=== PATIENT | female | born 1985 | race Caucasian/White ===

== ENCOUNTER 2018-10-10 15:48 | Emergency (ER) | payer BC ==
[2018-10-10] MEDS ORDERED: Sodium Chloride 0.9% 10 ML Syringe FLUSH PRN (16:17)
[2018-10-10] MEDS ORDERED: Sodium Chloride 0.9% 1,000 ML IV SCH (16:30)
[2018-10-10 17:46] LABS: HEMOGLOBIN A1C 10.8 % (4.50-6.20)
--- NOTE | 2018-10-10 18:55 | EDM.PDOC ---
ED HPI GENERAL MEDICAL PROBLEM - General Chief Complaint: Diabetic Complaint Stated Complaint: HIGH BLOOD SUGAR Time Seen by Provider: 10/10/18 16:04 Source of Information: Reports: Patient History Limitations: Reports: No Limitations - History of Present Illness INITIAL COMMENTS - FREE TEXT/NARRATIVE: The patient was sent over from the walk in clinic for an elevated blood sugar. Her blood sugar was 638 and she has no history of diabetes. She came to be seen for RUQ abdominal pain that is worse when she eats. This has been going on for a few days. She has nausea and vomiting. She has no fever, chills, cough, congestion or runny nose. She has no pain with urination. She still has her gallbladder. She has not been urinating more or drinking more water. She said over the past few days she has been consuming more sugar and bad food. Onset: Gradual Duration: Day(s): Location: Reports: Abdomen (RUQ) Quality: Reports: Sharp Severity: Moderate Improves with: Reports: None Worsens with: Reports: None Associated Symptoms: Reports: Nausea/Vomiting. Denies: Chest Pain, Cough, Fever /Chills, Headaches, Shortness of Breath - Related Data Allergies Allergy/AdvReac Type Severity Reaction Status Date / Time codeine Allergy Vomiting Verified 10/10/18 16:00 Home Meds: Home Meds . [No Known Home Meds] 10/10/18 [History] Past Medical History - Past Health History Medical/Surgical History: Denies Medical/Surgical History Social & Family History - Tobacco Use Smoking Status *Q: Current Every Day Smoker Years of Tobacco use: 8 Packs/Tins Daily: 0.5 - Caffeine Use Caffeine Use: Reports: Coffee, Energy Drinks, Soda - Recreational Drug Use Recreational Drug Use: No ED ROS GENERAL - Review of Systems Review Of Systems: See Below Constitutional: Reports: No Symptoms HEENT: Reports: No Symptoms Respiratory: Reports: No Symptoms Cardiovascular: Reports: No Symptoms Endocrine: Reports: No Symptoms GI/Abdominal: Reports: Abdominal Pain, Nausea, Vomiting : Reports: No Symptoms ED EXAM GENERAL NO PERIP PULSE - Physical Exam Exam: See Below Exam Limited By: No Limitations General Appearance: Alert, No Apparent Distress Ears: Normal External Exam Nose: Normal Inspection Head: Atraumatic, Normocephalic Neck: Normal Inspection Respiratory/Chest: No Respiratory Distress, Lungs Clear, Normal Breath Sounds Cardiovascular: Regular Rate, Rhythm, No Edema, No Murmur GI/Abdominal: Soft, No Organomegaly, No Mass, Tender (Moderate tenderness to the RUQ) Extremities: Normal Inspection Neurological: Alert, Oriented, No Motor/Sensory Deficits Course - Vital Signs Last Recorded V/S: Last Vital Signs Temp 96.5 F 10/10/18 15:57 Pulse 80 10/10/18 15:57 Resp 16 10/10/18 15:57 BP 132/82 10/10/18 15:57 Pulse Ox 98 10/10/18 15:57 - Orders/Labs/Meds Orders: Active Orders 24 hr Category Date Time Status Cardiac Monitoring [RC] . DIRECTED Care 10/10/18 16:17 Active Peripheral IV Care [RC] . DIRECTED Care 10/10/18 16:17 Active Abdomen Ltd [US] Stat Exams 10/10/18 16:34 Taken Sodium Chloride 0.9% [Normal Saline] 1,000 ml Med 10/10/18 16:30 Active IV .BOLUS Sodium Chloride 0.9% [Saline Flush] Med 10/10/18 16:17 Active 10 ml FLUSH ASDIRECTED PRN Peripheral IV Insertion Adult [OM.PC] Stat Oth 10/10/18 16:17 Ordered Medication Orders Sodium Chloride (Normal Saline) 1,000 mls @ 1,000 mls/hr IV .BOLUS EMERALD Last Admin: 10/10/18 16:32 Dose: 1,000 mls/hr Sodium Chloride (Saline Flush) 10 ml FLUSH ASDIRECTED PRN PRN Reason: Keep Vein Open Last Admin: 10/10/18 16:32 Dose: 10 ml Labs: Laboratory Tests 10/10/18 10/10/18 10/10/18 Range/Units 16:30 16:30 16:30 VBG pH (7.30-7.40) Sodium 134 L (136-145) mEq/L Potassium 4.4 (3.5-5.1) mEq/L Chloride 101 (98-107) mEq/L Carbon Dioxide 23 (21-32) mEq/L Anion Gap 14.4 (5-15) BUN 13 (7-18) mg/dL Creatinine 0.7 (0.55-1.02) mg/dL Est Cr Clr Drug Dosing 102.86 mL/min Estimated GFR (MDRD) > 60 (>60) mL/min BUN/Creatinine Ratio 18.6 H (14-18) Glucose 440 H (74-106) mg/dL Hemoglobin A1c 10.80 H (4.50-6.20) % Serum Osmolality 300 (280-300) mosm/kg Calcium 9.6 (8.5-10.1) mg/dL Total Bilirubin 0.2 (0.2-1.0) mg/dL AST 17 (15-37) U/L ALT 31 (14-59) U/L Alkaline Phosphatase 88 (46-116) U/L Total Protein 6.9 (6.4-8.2) g/dl Albumin 3.4 (3.4-5.0) g/dl Globulin 3.5 gm/dL Albumin/Globulin Ratio 1.0 (1-2) Ketones 0.07 (0.0-0.3) mM 10/10/18 Range/Units 18:25 VBG pH 7.43 H (7.30-7.40) Sodium (136-145) mEq/L Potassium (3.5-5.1) mEq/L Chloride (98-107) mEq/L Carbon Dioxide (21-32) mEq/L Anion Gap (5-15) BUN (7-18) mg/dL Creatinine (0.55-1.02) mg/dL Est Cr Clr Drug Dosing mL/min Estimated GFR (MDRD) (>60) mL/min BUN/Creatinine Ratio (14-18) Glucose (74-106) mg/dL Hemoglobin A1c (4.50-6.20) % Serum Osmolality (280-300) mosm/kg Calcium (8.5-10.1) mg/dL Total Bilirubin (0.2-1.0) mg/dL AST (15-37) U/L ALT (14-59) U/L Alkaline Phosphatase (46-116) U/L Total Protein (6.4-8.2) g/dl Albumin (3.4-5.0) g/dl Globulin gm/dL Albumin/Globulin Ratio (1-2) Ketones (0.0-0.3) mM Meds: Medications Generic Name Dose Route Start Last Admin Trade Name Freq PRN Reason Stop Dose Admin Sodium Chloride 1,000 mls @ 1,000 mls/hr 10/10/18 16:30 10/10/18 16:32 Normal Saline IV 1,000 mls/hr .BOLUS EMERALD Administration Sodium Chloride 10 ml 10/10/18 16:17 10/10/18 16:32 Saline Flush FLUSH 10 ml ASDIRECTED PRN Administration Keep Vein Open - Re-Assessments/Exams Free Text/Narrative Re-Assessment/Exam: 10/10/18 19:03 I ordered an IV NS 1L bolus, labs, and an US of her RUQ. The US shows nothing acute. Her CBC looks good. Her pH was slightly elevated at 7.43. Her Na is a little low at 134. Her glucose is 440. Her A1C is 10.8. Her ketones are normal. She has new onset Type II diabetes. I will get her started on some metformin. Departure - Departure Time of Disposition: 19:10 Disposition: Home, Self-Care 01 Condition: Good Clinical Impression: Hyperglycemia Abdominal pain Qualifiers: Abdominal location: right upper quadrant Qualified Code(s): R10.11 - Right upper quadrant pain Type II diabetes mellitus Qualifiers: Diabetes mellitus long term care pharmacist insulin use: without half-way use Diabetes mellitus complication status: with other specified complication Qualified Code(s ): E11.69 - Type 2 diabetes mellitus with other specified complication - Discharge Information *PRESCRIPTION DRUG MONITORING PROGRAM REVIEWED*: No *COPY OF PRESCRIPTION DRUG MONITORING REPORT IN PATIENT AMARI: No Referrals: PCP,None [Primary Care Provider] - Debby Wray PA-C [Physician Filter Tip Catcher] - 1 Week Forms: ED Department Discharge Additional Instructions: Drink plenty of fluids. Take the metformin daily. Follow up with Debby Wray in 1 week. Check your blood sugars daily. Please return if you are worse. - My Orders Last 24 Hours: My Active Orders 10/10/18 16:17 Cardiac Monitoring [RC] . DIRECTED Peripheral IV Care [RC] . DIRECTED Sodium Chloride 0.9% [Saline Flush] 10 ml FLUSH ASDIRECTED PRN Peripheral IV Insertion Adult [OM.PC] Stat 10/10/18 16:30 Sodium Chloride 0.9% [Normal Saline] 1,000 ml IV .BOLUS 10/10/18 16:34 Abdomen Ltd [US] Stat - Assessment/Plan Last 24 Hours: My Active Orders 10/10/18 16:17 Cardiac Monitoring [RC] . DIRECTED Peripheral IV Care [RC] . DIRECTED Sodium Chloride 0.9% [Saline Flush] 10 ml FLUSH ASDIRECTED PRN Peripheral IV Insertion Adult [OM.PC] Stat 10/10/18 16:30 Sodium Chloride 0.9% [Normal Saline] 1,000 ml IV .BOLUS 10/10/18 16:34 Abdomen Ltd [US] Stat
--- NOTE | 2018-10-13 08:08 | US ---
Limited abdominal ultrasound: Multiple real-time images of the upper right abdomen were obtained. Comparison: No prior abdominal imaging. Liver contains no focal abnormality. Gallbladder shows no shadowing gallstones. No gallbladder wall thickening or biliary duct dilatation is seen. Right kidney shows no hydronephrosis or mass. Pancreas is incompletely seen. Visualized portions of the pancreas are within normal limits. Inferior vena cava is patent. Portal vein shows normal hepatopedal flow. Impression: 1. Nothing acute is appreciated on right upper quadrant abdominal ultrasound. Diagnostic code #1 I agree with preliminary report from [facility], finalized on 10/10/18, 6:55 PM Central Time
== END 2018-10-10 19:38 | disposition home or self-care (01) ==
LOC: JD.ED 15:48
DX: E11.65 Type 2 diabetes mellitus with hyperglycemia (principal); F17.210 Nicotine dependence, cigarettes, uncomplicated; Z88.5 Allergy status to narcotic agent
CPT/HCPCS: 36415; 76705; 80053; 82009; 82800; 83036; 83930; 96360; 99284; J7040

== ENCOUNTER 2019-04-12 14:01 | Emergency (ER) | payer BC ==
--- NOTE | 2019-04-12 14:47 | EDM.PDOC ---
ED HPI GENERAL MEDICAL PROBLEM - General Chief Complaint: Upper Extremity Injury/Pain Stated Complaint: RT HAND/WRIST INJURY Time Seen by Provider: 04/12/19 14:42 Source of Information: Reports: Patient History Limitations: Reports: No Limitations - History of Present Illness INITIAL COMMENTS - FREE TEXT/NARRATIVE: She's unfortunate 33-year-old female who presents today with complaint of right hand pain. Patient reports she was in her normal state of health approximately 20 minutes prior to arrival when she was walking her dog slipped on ice and fell 4 put out on her outstretched hand and has had pain to her right hand over the thenar eminence ever since. Pain is worse with palpation or range of motion present at rest does not alleviate. Distal neurovascular is intact Right Wrist Pain Score (Numeric/FACES): 6 - Related Data Allergies Allergy/AdvReac Type Severity Reaction Status Date / Time codeine Allergy Vomiting Verified 04/12/19 14:31 Home Meds: Home Meds Lisinopril 5 mg PO DAILY 04/12/19 [History] metFORMIN [Glucophage XR] 1,000 mg PO BID 04/12/19 [History] Past Medical History - Past Health History Medical/Surgical History: Denies Medical/Surgical History Cardiovascular History: Reports: Hypertension Endocrine/Metabolic History: Reports: Diabetes, Type II Social & Family History - Tobacco Use Smoking Status *Q: Former Smoker Used Tobacco, but Quit: Yes Month/Year Tobacco Last Used: 02/14 - Caffeine Use Caffeine Use: Reports: Coffee - Recreational Drug Use Recreational Drug Use: No Review of Systems - Review of Systems Review Of Systems: See Below Musculoskeletal: Reports: Hand Pain Psychiatric: Reports: Other ED EXAM, GENERAL - Physical Exam Exam: See Below Exam Limited By: No Limitations General Appearance: Alert, WD/WN, Mild Distress Respiratory/Chest: No Respiratory Distress, Lungs Clear, Normal Breath Sounds, No Accessory Muscle Use, Chest Non-Tender Cardiovascular: Normal Peripheral Pulses, Regular Rate, Rhythm, No Edema, No Gallop, No JVD, No Murmur, No Rub GI/Abdominal: Normal Bowel Sounds, Soft, Non-Tender, No Organomegaly, No Distention, No Abnormal Bruit, No Mass Extremities: Other (All tenderness to the right thenar eminence tender to palpation no ecchymosis pain is worse with range of motion or palpation present depressed does not alleviate) Neurological: Alert, Oriented Course - Vital Signs Last Recorded V/S: Last Vital Signs Temp 97.1 F 04/12/19 14:28 Pulse 92 04/12/19 14:28 Resp 16 04/12/19 14:28 BP 118/78 04/12/19 14:28 Pulse Ox 99 04/12/19 14:28 - Orders/Labs/Meds Orders: Active Orders 24 hr Category Date Time Status Hand Comp Min 3V Rt [CR] Stat Exams 04/12/19 14:45 Taken - Re-Assessments/Exams Free Text/Narrative Re-Assessment/Exam: 04/12/19 15:17 Right hand interpreted by me NAD Departure - Departure Time of Disposition: 15:18 Disposition: Home, Self-Care 01 Condition: Good Clinical Impression: Sprain of right thumb Qualifiers: Encounter type: initial encounter Sprain of finger site: other site Qualified Code(s): S63.681A - Other sprain of right thumb, initial encounter - Discharge Information Referrals: Debby Wray PA-C [Primary Care Provider] - Forms: ED Department Discharge Additional Instructions: Home, rest, ice, elevate, Tylenol as needed for pain, return as needed for worsening condition Sepsis Event Note - Evaluation Sepsis Screening Result: No Definite Risk - Focused Exam Vital Signs: Vital Signs Temp Pulse Resp BP Pulse Ox 04/12/19 14:28 97.1 F 92 16 118/78 99 Date Exam was Performed: 04/12/19 Time Exam was Performed: 15:17 - My Orders Last 24 Hours: My Active Orders 04/12/19 14:45 Hand Comp Min 3V Rt [CR] Stat - Assessment/Plan Last 24 Hours: My Active Orders 04/12/19 14:45 Hand Comp Min 3V Rt [CR] Stat
--- NOTE | 2019-04-13 10:47 | CR ---
Right hand: Three views of the right hand were obtained. Comparison: No prior right hand exam. Joint spaces are preserved. No fracture, dislocation or other bony abnormality is seen. Impression: 1. No abnormality is identified on right hand exam. Diagnostic code #1 This report was dictated in [place] Standard Time
== END 2019-04-12 15:35 | disposition home or self-care (01) ==
LOC: JD.ED 14:01
DX: S63.681A Other sprain of right thumb, initial encounter (principal); I10 Essential (primary) hypertension; E11.9 Type 2 diabetes mellitus without complications; Z88.5 Allergy status to narcotic agent; Z79.899 Other long term (current) drug therapy; Z79.84 Long term (current) use of oral hypoglycemic drugs; Z87.891 Personal history of nicotine dependence; W00.0XXA Fall on same level due to ice and snow, initial encounter; Y93.K1 Activity, walking an animal
CPT/HCPCS: 73130-26-RT; 73130-RT; 99282; 99283-25

== ENCOUNTER → 2022-10-17 | Day surgery (SDC) | payer BC ==
[~2022-10-17] MED LIST: Bupivacaine 0.25% 10 ML SDV ONE; EPINEPHrine 1 MG/ML 30 ML MDV IRR SCH; HYDROmorphone 0.5 MG/0.5 ML Syringe IVPUSH PRN; Ketorolac 30 MG/ML SDV ONE; Lactated Ringers 1,000 ML IV SCH; Lidocaine 1% 2 ML ONE; Midazolam 1 MG/ML 2 ML SDV ONE; Ondansetron 4 MG/2 ML SDV IVPUSH PRN; Ondansetron 4 MG/2 ML SDV ONE; Propofol 200 MG/20 ML SDV ONE; Sodium Chloride 0.9% 10 ML Syringe FLUSH PRN; Sodium Chloride 0.9% 10 ML Syringe FLUSH SCH; ceFAZolin 2 GM Vial ONE; fentaNYL 100 MCG/2 ML SDV IVPUSH PRN; fentaNYL 100 MCG/2 ML SDV ONE; traMADol 50 MG Tab PO ONE
== END | disposition home or self-care (01) ==
LOC: JD.SDS 07:04
PROVIDERS: ATTEND Orthopaedic Surgery
DX: S83.281A Other tear of lateral meniscus, current injury, right knee, initial encounter (principal); M94.261 Chondromalacia, right knee; G89.29 Other chronic pain; B35.3 Tinea pedis; E78.5 Hyperlipidemia, unspecified; E11.3299 Type 2 diabetes mellitus with mild nonproliferative diabetic retinopathy without macular edema, unspecified eye; F17.210 Nicotine dependence, cigarettes, uncomplicated; Z88.2 Allergy status to sulfonamides; Z88.5 Allergy status to narcotic agent; Z79.84 Long term (current) use of oral hypoglycemic drugs; Z79.899 Other long term (current) drug therapy; Z79.85 Long-term (current) use of injectable non-insulin antidiabetic drugs
CPT/HCPCS: 29881; 87641; A9270; J0171; J0690; J1885; J2250; J2405; J2704; J3010; J3490; J7120; 01400

== ENCOUNTER 2024-04-30 05:17 | Inpatient (IN) | payer BC ==
[~2024-04-30 05:17] MED LIST changes: -Bupivacaine 0.25% 10 ML SDV ONE; -EPINEPHrine 1 MG/ML 30 ML MDV IRR SCH; -HYDROmorphone 0.5 MG/0.5 ML Syringe IVPUSH PRN; -Ketorolac 30 MG/ML SDV ONE; -Lidocaine 1% 2 ML ONE; -Midazolam 1 MG/ML 2 ML SDV ONE; -Ondansetron 4 MG/2 ML SDV IVPUSH PRN; -Ondansetron 4 MG/2 ML SDV ONE; +Oxytocin/0.9 % Sodium Chloride 30 UNIT/500 ML BAG IV SCH; -Propofol 200 MG/20 ML SDV ONE; -Sodium Chloride 0.9% 10 ML Syringe FLUSH SCH; -ceFAZolin 2 GM Vial ONE; -fentaNYL 100 MCG/2 ML SDV IVPUSH PRN; -fentaNYL 100 MCG/2 ML SDV ONE; -traMADol 50 MG Tab PO ONE
[2024-04-30 05:45] LABS: BASOPHILS PERCENT AUTO 0.2 % (0.0-1.0); EOSINOPHILS ABSOLUTE AUTO 0.1 K/mm3 (0.0-0.4); EOSINOPHILS PERCENT AUTO 0.8 % (0.0-6.0); HEMATOCRIT 32.3 % (37.0-47.0); HEMOGLOBIN 11.1 gm/dl (12.0-16.0); IMMATURE GRAN ABSOLUTE AUTO 0.06 K/mm3 (0.00-0.05); IMMATURE GRAN PERCENT AUTO 0.7 % (0.0-0.4); LYMPHOCYTES ABSOLUTE AUTO 2.2 K/mm3 (1.0-4.8); LYMPHOCYTES PERCENT AUTO 24.8 % (24.0-44.0); MEAN CORPUSCULAR HEMOGLOBIN 29.7 pg (28.0-32.0); MEAN CORPUSCULAR HGB CONC 34.4 g/dl (32.0-36.0); MEAN CORPUSCULAR VOLUME 86.4 fl (83.0-99.0); MEAN PLATELET VOLUME 9.1 fl (9.4-12.3); MONOCYTES ABSOLUTE AUTO 0.8 K/mm3 (0.0-0.8); NEUTROPHILS ABSOLUTE AUTO 5.7 K/mm3 (1.8-7.7); NEUTROPHILS PERCENT AUTO 64.5 % (41.0-71.0); PLATELET COUNT,PLT 286 K/mm3 (150-400); RED BLOOD CELL COUNT 3.74 M/mm3 (4.10-5.30)
[2024-04-30] MEDS ORDERED: Oxytocin/0.9 % Sodium Chloride 30 UNIT/500 ML BAG IV SCH (05:45)
[2024-04-30 06:17] LABS: A/G RATIO 0.7 (1-2); ALBUMIN 2.5 g/dl (3.4-5.0); BILIRUBIN TOTAL 0.3 mg/dL (0.2-1.0); CALCIUM 8.7 mg/dL (8.5-10.1); CREATININE 0.6 mg/dL (0.55-1.02); EST CRCL DRUG DOSING (CG) 113.27 mL/min; PROTEIN TOTAL,TP 6.2 g/dl (6.4-8.2)
[2024-04-30] MEDS ORDERED: diphenhydrAMINE 50 MG/ML SDV IVPUSH PRN ×2 (06:36→10:35)
[2024-04-30] MEDS ORDERED: Sodium Chloride 0.9% 10 ML Syringe FLUSH PRN (06:36)
[2024-04-30] MEDS ORDERED: Meperidine 50 MG/ML Vial IVPUSH PRN (06:36)
[2024-04-30] MEDS ORDERED: Ondansetron 4 MG/2 ML SDV IVPUSH PRN (06:36)
[2024-04-30] MEDS ORDERED: fentaNYL 100 MCG/2 ML SDV IVPUSH PRN (06:36)
[2024-04-30] MEDS ORDERED: Lactated Ringers 1,000 ML IV SCH (06:45)
[2024-04-30] MEDS: Metoclopramide 10 MG/2 ML SDV IVPUSH ONE (07:32)
[2024-04-30] MEDS: Lactated Ringers 1,000 ML IV SCH (07:33)
[2024-04-30] MEDS: Citric Acid/Sodium Citrate Solution 30 ML Cup PO ONE ×2 (07:33→09:46)
[2024-04-30] MEDS ORDERED: ceFAZolin 2 GM Vial ONE (08:00)
[2024-04-30] MEDS ORDERED: Ketorolac 30 MG/ML SDV ONE (08:00)
[2024-04-30] MEDS ORDERED: Morphine PF 10 MG/10 ML SDV ONE (08:00)
[2024-04-30] MEDS ORDERED: ePHEDrine 50 MG/ML SDV ONE ×2 (08:00)
[2024-04-30 08:34] LABS: PCO2 UMBILICAL ARTERIAL 76.3 (42-58); PCO2 UMBILICAL VENOUS 48.2 (32.8-38.6); PH,UMBILICAL ARTERIAL 7.11 (7.22-7.32); PH,UMBILICAL VENOUS 7.26 (7.28-7.40)
[2024-04-30 08:35] LABS: BICARBONATE,VENOUS UMBILICAL 21.1 (19-24)
[2024-04-30] MEDS ORDERED: Non-Formulary Medication 1 Each (Metformin 500 MG Tab.Er) PO SCH (09:00)
[2024-04-30] MEDS ORDERED: Sodium Chloride 0.9% 10 ML Syringe FLUSH SCH (09:00)
[2024-04-30 09:45] LABS: HEMATOCRIT 30.1 % (37.0-47.0); MEAN CORPUSCULAR HEMOGLOBIN 29.4 pg (28.0-32.0); MEAN CORPUSCULAR HGB CONC 33.2 g/dl (32.0-36.0); MEAN CORPUSCULAR VOLUME 88.5 fl (83.0-99.0); MEAN PLATELET VOLUME 9.2 fl (9.4-12.3); PLATELET COUNT,PLT 273 K/mm3 (150-400); WHITE BLOOD CELL COUNT,WBC 10.16 K/mm3 (3.9-11.3)
[2024-04-30] MEDS: Metoclopramide 10 MG/2 ML SDV IM ONE (09:46)
[2024-04-30] MEDS: ceFAZolin 1 GM Vial IVPUSH ONE (09:46)
[2024-04-30] MEDS: Sodium Chloride 0.9% 10 ML Syringe FLUSH SCH (09:47)
[2024-04-30 10:03] LABS: INR 0.95; PROTHROMBIN TIME 10.1 SECONDS (9.7-12.0)
[2024-04-30 10:05] LABS: PTT,PARTIAL THROMBOPLSTIN TIME 25.7 SECONDS (21.7-31.4)
[2024-04-30] MEDS ORDERED: Naloxone 0.4 MG/ML SDV IVPUSH PRN (10:35)
[2024-04-30] MEDS ORDERED: Docusate Sodium 100 MG Cap PO PRN (10:35)
[2024-04-30] MEDS ORDERED: oxyCODONE 5 MG Tab PO PRN (10:35)
[2024-04-30] MEDS ORDERED: Ondansetron 4 MG/2 ML SDV IV PRN (10:35)
[2024-04-30] MEDS ORDERED: ePHEDrine 50 MG/ML SDV IVPUSH PRN (10:35)
[2024-04-30] MEDS: Dextrose 5%-Lactated Ringers 1,000 ML IV SCH (12:02)
[2024-04-30] MEDS: Sodium Chloride 0.9% 1,000 ML IV ONE (12:30)
[2024-04-30] MEDS: Ketorolac 30 MG/ML SDV IVPUSH SCH (14:13)
[2024-04-30] MEDS: Sodium Chloride 0.9% 500 ML IV SCH (17:05)
[2024-05-01] MEDS: Sodium Chloride 0.9% 500 ML IV ONE (01:22)
[2024-05-01 05:33] LABS: HEMATOCRIT 25.9 % (37.0-47.0); HEMOGLOBIN 8.7 gm/dl (12.0-16.0); MEAN CORPUSCULAR HEMOGLOBIN 29.1 pg (28.0-32.0); MEAN CORPUSCULAR HGB CONC 33.6 g/dl (32.0-36.0); MEAN CORPUSCULAR VOLUME 86.6 fl (83.0-99.0); PLATELET COUNT,PLT 254 K/mm3 (150-400); RED BLOOD CELL COUNT 2.99 M/mm3 (4.10-5.30); WHITE BLOOD CELL COUNT,WBC 11.14 K/mm3 (3.9-11.3)
[2024-05-01] MEDS: Ibuprofen 600 MG Tab PO SCH (09:13)
[2024-05-01] MEDS: Acetaminophen 325 MG Tab PO PRN (20:11)
[2024-05-02 05:44] LABS: HEMATOCRIT 25.3 % (37.0-47.0); HEMOGLOBIN 8.5 gm/dl (12.0-16.0); MEAN CORPUSCULAR HEMOGLOBIN 29.6 pg (28.0-32.0); MEAN CORPUSCULAR HGB CONC 33.6 g/dl (32.0-36.0); MEAN CORPUSCULAR VOLUME 88.2 fl (83.0-99.0); MEAN PLATELET VOLUME 9.1 fl (9.4-12.3); PLATELET COUNT,PLT 270 K/mm3 (150-400); RED BLOOD CELL COUNT 2.87 M/mm3 (4.10-5.30); WHITE BLOOD CELL COUNT,WBC 8.61 K/mm3 (3.9-11.3)
== END 2024-05-02 10:35 | disposition home or self-care (01) | DRG 540 ==
LOC: JD.OB 05:17
PROVIDERS: ADMIT Obstetrics & Gynecology; ATTEND Obstetrics & Gynecology
PROC: 10D00Z1 Extraction of Products of Conception, Low, Open Approach (ICD-10-PCS; principal; 2024-04-30 07:30)
DX: O24.32 Unspecified pre-existing diabetes mellitus in childbirth (principal); D62 Acute posthemorrhagic anemia; O99.214 Obesity complicating childbirth; O99.02 Anemia complicating childbirth; Z37.0 Single live birth; Z3A.38 38 weeks gestation of pregnancy
CPT/HCPCS: 01961; 36415; 36600; 59025; 80053; 82803; 82947; 85025; 85027; 85384; 85610; 85730; 86592; 86850; 86870; 86900; 86901; A9270-GY; J0690; J1885; J2274; J2765; J3490; J7030; J7040; J7120; J7121

== ENCOUNTER 2024-07-14 09:34 | Emergency (ER) | payer BC ==
[2024-07-14] MEDS ORDERED: Sodium Chloride 0.9% 10 ML Syringe FLUSH PRN (10:17)
[2024-07-14 10:54] LABS: BASOPHILS PERCENT AUTO 0.4 % (0.0-1.0); EOSINOPHILS ABSOLUTE AUTO 0.1 K/mm3 (0.0-0.4); EOSINOPHILS PERCENT AUTO 0.6 % (0.0-6.0); HEMATOCRIT 40.5 % (37.0-47.0); HEMOGLOBIN 13.5 gm/dl (12.0-16.0); IMMATURE GRAN ABSOLUTE AUTO 0.02 K/mm3 (0.00-0.05); IMMATURE GRAN PERCENT AUTO 0.3 % (0.0-0.4); LYMPHOCYTES ABSOLUTE AUTO 1.4 K/mm3 (1.0-4.8); LYMPHOCYTES PERCENT AUTO 17.6 % (24.0-44.0); MEAN CORPUSCULAR HEMOGLOBIN 27.3 pg (28.0-32.0); MEAN CORPUSCULAR HGB CONC 33.3 g/dl (32.0-36.0); MEAN PLATELET VOLUME 8.9 fl (9.4-12.3); MONOCYTES ABSOLUTE AUTO 0.5 K/mm3 (0.0-0.8); MONOCYTES PERCENT AUTO 6.6 % (0.0-8.0); NEUTROPHILS ABSOLUTE AUTO 5.9 K/mm3 (1.8-7.7); NEUTROPHILS PERCENT AUTO 74.5 % (41.0-71.0); RED BLOOD CELL COUNT 4.94 M/mm3 (4.10-5.30); WHITE BLOOD CELL COUNT,WBC 7.92 K/mm3 (3.9-11.3)
[2024-07-14 10:55] LABS: PLATELET COUNT,PLT 316 K/mm3 (150-400)
[2024-07-14 11:17] LABS: ALANINE AMINOTRANSFERASE,ALT 38 U/L (14-59); ALBUMIN 3.4 g/dl (3.4-5.0); ALKALINE PHOSPHATASE 73 U/L (46-116); ANION GAP 11.2 (5-15); ASPARTATE AMNIOTRANSFERASE,AST 18 U/L (15-37); BILIRUBIN TOTAL 0.3 mg/dL (0.2-1.0); BLOOD UREA NITROGEN,BUN 13 mg/dL (7-18); BUN/CREATININE RATIO 18.6 (14-18); CALCIUM 9.2 mg/dL (8.5-10.1); CARBON DIOXIDE,CO2 24 mEq/L (21-32); CHLORIDE,CL 106 mEq/L (98-107); CREATININE 0.7 mg/dL (0.55-1.02); EST CRCL DRUG DOSING (CG) 97.09 mL/min; ESTIMATED GFR 113 mL/min (>60); GLUCOSE RANDOM 113 mg/dL (70-99); MAGNESIUM 1.6 mg/dL (1.8-2.4); POTASSIUM,K 4.2 mEq/L (3.5-5.1); PROTEIN TOTAL,TP 6.8 g/dl (6.4-8.2); SODIUM,NA 137 mEq/L (136-145); TROPONIN I HIGH SENSITIVITY < 4 pg/mL (<=51)
[2024-07-14] MEDS: Sodium Chloride 0.9% 1,000 ML IV ONE (11:32)
[2024-07-14] MEDS: Magnesium Oxide 400 MG Tab PO ONE (12:21)
== END 2024-07-14 12:26 | disposition home or self-care (01) ==
LOC: JD.ED 09:34
DX: R55 Syncope and collapse (principal); I10 Essential (primary) hypertension; E78.00 Pure hypercholesterolemia, unspecified; E11.9 Type 2 diabetes mellitus without complications; Z88.2 Allergy status to sulfonamides; Z88.5 Allergy status to narcotic agent; Z79.84 Long term (current) use of oral hypoglycemic drugs; Z79.899 Other long term (current) drug therapy
CPT/HCPCS: 36415; 71045; 80053; 83735; 84484; 84703; 85025; 93005; 96360; 99284; A9270; J7030; 93010; 99283